=== PATIENT | male | born 1950 | race Caucasian/White ===

== ENCOUNTER → 2019-10-18 | Day surgery (SDC) | payer MEDICARE ==
--- NOTE | 2019-10-18 12:03 | MRI ---
EXAM DESCRIPTION: Cervical Spine: MRI. CLINICAL HISTORY: 69 years Male CERVICALGIA COMPARISON: None. TECHNIQUE: Multiplanar, high-field MRI, multiple sequences, non-contrast Cervical spine. FINDINGS: C2-C3: Minimal disc desiccation. Tiny posterior midline bulge. Advanced degenerative hypertrophy of the right facet joint. Borderline right neural foraminal stenosis. Canal and left neuroforamen are patent. C3-C4: Disc desiccation and minimal disc space loss. Anterior bulge and endplate spurs. Posterior midline bulge abutting the cord. Posterior ligament thickening and hypertrophic arthrosis left facet joint. Moderate to severe canal narrowing. Bilateral uncinate spurs. Bilateral neural foraminal stenosis. C4-C5: Disc desiccation with disc space maintained. 2 mm retrolisthesis. Posterior broad-based disc bulge more to the left of midline. Bilateral uncinate spurs. Bilateral facet arthrosis and hypertrophy more to the right and posterior flavum ligament thickening more on the left. Mild central canal stenosis. Neural foraminal stenosis bilaterally, more on the right. C5-C6: Disc desiccation and minimal disc space loss. Anterior endplate ridging and mild endplate reactive changes. Bilateral uncinate spurs. 3 mm anterolisthesis and left posterior disc protrusion impressing the left ventral cord and the left C6 nerve. Minimal ligament thickening. Facets unremarkable. Left paracentral mild canal stenosis. No foraminal stenosis. C6-C7: Diffuse mild to moderate endplate reactive changes anterior and laterally with moderate to severe disc space loss. Anterior bulging and endplate ridging. Posterior small spurs. Bilateral uncinate spurs larger on the right. Right posterior disc osteophyte complex encroaching on the cord and the right C7 nerve. Severe right neural foraminal stenosis and borderline left neural foraminal stenosis. Mild right facet arthrosis. C7-T1: Disc and disc space unremarkable. Minimal facet arthrosis. Canal and neural foramina are patent. T1-T2: Superior mild to moderate T2 endplate reactive changes. Bilateral endplate reactive changes with disc spur complex bilaterally encroaching on the neural foramina with right neural foraminal stenosis and severe left neural foraminal narrowing. Minimal ligament thickening and mild canal narrowing. Spinal alignment reduced cervical lordosis.. No cord compression or cord edema. Atlantoaxial joint negative.. Base of the cerebellar tonsils is above the foramen magnum. Paravertebral soft tissues unremarkable. Vertebral bodies are not compressed at any level. Otherwise normal marrow signal in the remaining vertebral bodies and the posterior elements. Desiccation of T2-T3 disc, T3-T4 disc, and T4-T5 disc on the included segments with posterior bulging, spondylosis, and significant unilateral or bilateral neural foraminal encroachment. IMPRESSION: 1. Multiple levels of disc desiccation and disc space loss, endplate spondylosis, facet hypertrophic arthrosis. 2. Bilateral neural foraminal stenosis C4-C5. Correlate for impingement bilateral C5 nerve roots. 3. Left posterior C5-C6 disc osteophyte complex bulge and left disc protrusion with left paracentral canal stenosis and possible compromise right C6 nerve. 4. Right posterior C6-C7 disc osteophyte complex bulge/protrusion impressing on the cord in the right C7 nerve. Bilateral borderline to severe right neural foraminal stenosis with possible compromise bilateral C7 nerves. 5. Possible compromise bilateral T1 nerve roots in the bilateral T1-T2 foramina. Multiple included upper thoracic disc spaces with spondylosis, disc desiccation and bulging, and significant neural foraminal involvement. Consider follow-up MRI scan of the thoracic spine if symptoms of thoracic radiculopathy or pain are present. Electronically signed by: Srinivasan Mckeon MD 10/18/2019 12:01 PM CDT
== END ==
LOC: MRI 08:02
PROVIDERS: ATTEND Family Medicine
DX: M48.02 Spinal stenosis, cervical region (principal); M25.78 Osteophyte, vertebrae; M51.84 Other intervertebral disc disorders, thoracic region; M47.813 Spondylosis without myelopathy or radiculopathy, cervicothoracic region

== ENCOUNTER → 2020-03-19 | Outpatient (CLI) | payer MEDICARE | LOC: GMAL 16:32 | PROVIDERS: ATTEND Family Medicine | DX: Z12.5 Encounter for screening for malignant neoplasm of prostate (principal); Z13.29 Encounter for screening for other suspected endocrine disorder; R07.9 Chest pain, unspecified; R53.83 Other fatigue | CPT/HCPCS: 84403; 84439; 84443; G0103 ==